=== PATIENT | male | born 1930 | race Caucasian/White ===

== ENCOUNTER 2018-03-11 12:50 | Emergency (ER) | payer MEDICARE, OTHER ==
[~2018-03-11] VITALS: Ht 170.2 cm; Wt 72.6 kg
[2018-03-11 13:13] VITALS: BP 176/78
[2018-03-11] MEDS ORDERED: NKM (13:14)
[2018-03-11 14:45] VITALS: BP 165/77
--- NOTE | 2018-03-11 21:40 | Emergency Room Report ---
History of Present Illness General Chief Complaint: Male Urogenital Problems Source: Patient Present Illness HPI The patient is an 88-year-old male presenting for Hutchinson catheter change. He states that his home nurse change the catheter yesterday and he has noticed leaking today. He denies any other symptoms including hematuria, dysuria, abdominal pain, flank pain. Allergies: Coded Allergies: CLINDAMYCIN (Verified Allergy, Unknown, 03/11/18) TETRACYCLINE (Verified Allergy, Unknown, 03/11/18) Wheat (Verified Allergy, Unknown, 08/26/06) Uncoded Allergies: PENICILLIN (Allergy, Unknown, 03/11/18) Patient History Past Medical History: see triage record Pertinent Family History: none Reviewed Nursing Documentation: PMH: Agreed; PSxH: Agreed Nursing Documentation-PMH Past Medical History: No History, Except For Hx Cardiac Problems: Yes - AAA Hx Hypertension: No Hx Pacemaker: No Hx Asthma: No Hx COPD: No Hx Diabetes: No Hx Cancer: Yes - Prostate CA Hx Gastrointestinal Problems: No Hx Dialysis: No History Of Psychiatric Problem: No Hx Neurological Problems: No Hx Cerebrovascular Accident: No Hx Seizures: No Review of Systems All Other Systems: negative except mentioned in HPI Physical Exam Vital Signs Date Time Temp Pulse Resp B/P (MAP) Pulse Ox O2 Delivery O2 Flow Rate FiO2 03/11/18 13:11 97.9 82 14 176/78 94 Room Air Sp02 EP Interpretation: reviewed, normal General Appearance: no apparent distress, alert, GCS 15, non-toxic Gastrointestinal: normal bowel sounds, non tender, soft, non-distended, no guarding, no rebound Genitourinary: normal inspection, no CVA tenderness, other - hutchinson in place. No bleeding. Neurologic: alert, oriented x3, responsive, motor strength/tone normal, sensory intact, speech normal Psychiatric: judgement/insight normal, memory normal, mood/affect normal, no suicidal/homicidal ideation Skin: normal color, no rash, warm/dry, well hydrated Medical Decision Making PA Attestation Dr. Ritchie is my supervising physician. Patient management was discussed with my supervising physician Diagnostic Impression: Primary Impression: Hutchinson catheter problem Qualified Codes: T83.9XXA - Unspecified complication of genitourinary prosthetic device, implant and graft, initial encounter ER Course The patient is an 88-year-old male presenting for Hutchinson catheter change Differential diagnosis considered but not limited to: Inadequate Hutchinson catheter placed seen, urethritis, UTI, among others Physical exam: Afebrile. No apparent distress Abdomen soft and nontender No CVA tenderness Hutchinson catheters in place without signs of trauma. No bleeding Nurse successfully removed and replaced Hutchinson catheter. Patient is feeling much better now. He is discharged and was told to follow-up with his urologist as soon as possible. He understands Last Vital Signs Date Time Temp Pulse Resp B/P (MAP) Pulse Ox O2 Delivery O2 Flow Rate FiO2 03/11/18 14:45 97.9 88 18 165/77 95 Room Air Status: improved Disposition: HOME, SELF-CARE Condition: Improved Additional Instructions: I discussed my findings with the patient. All questions and concerns have been answered. Treatment and medication compliance have been addressed. I advised the patient that they need to follow up with PMD in 3-5 days. Return to ED if symptoms worsen, new symptoms arise, or if needed for any reason. Patient verbalized understanding of discharge instructions. Please follow up with your urologist as soon as possible WARREN ESQUIVEL Mar 11, 2018 21:40
== END 2018-03-11 14:45 | disposition home or self-care (01) ==
LOC: EMR 13:28
DX: T83.031A Leakage of indwelling urethral catheter, initial encounter (principal); Y84.6 Urinary catheterization as the cause of abnormal reaction of the patient, or of later complication, without mention of misadventure at the time of the procedure; Y92.009 Unspecified place in unspecified non-institutional (private) residence as the place of occurrence of the external cause; Z85.46 Personal history of malignant neoplasm of prostate
CPT/HCPCS: 51702; 99283